=== PATIENT | male | born 1935 | race Caucasian/White ===

== ENCOUNTER 2022-11-30 15:22 | Outpatient (CLI) | payer MEDICARE, SELFPAY ==
[2022-11-30 16:51] LABS: Anion Gap 9.8 (5-19); Blood Urea Nitrogen 22 mg/dL (8-23); Calcium 9.1 mg/dL (8.5-10.5); Carbon Dioxide 36 mmol/L (22-29); Chloride 96 mmol/L (98-107); Glucose 99 mg/dL (65-115); Osmolality Calculated 289 mOsm/kg (285-295); Potassium 3.8 mmol/L (3.5-5.1); Sodium 138 mmol/L (136-145)
== END 2022-11-30 15:23 | disposition home or self-care (01) ==
LOC: LAB 15:30
PROVIDERS: PCP Nurse Practitioner Family; Visit Provider Family Medicine
DX: I50.32 Chronic diastolic (congestive) heart failure (principal)
CPT/HCPCS: 80048

== ENCOUNTER 2023-04-02 12:46 | Outpatient (CLI) | payer MEDICARE, OTHER, SELFPAY ==
--- NOTE | 2023-04-02 13:09 | MR_ITS ---
WS: [id number] MRI ORBITs with and without CONTRAST. COMPARISON: None Multiplanar, multisequence imaging is performed with and without contrast. MultiHance 18 mL IV. 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 Headaches. This study is compromised by motion artifact. Patient was unable to remain still for this examination . 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 There is very minimal peripheral di ffusion abnormality noted in the site of the infarct along with mild cortical laminar necrosis. Minim al associated hemosiderin with in the infarct. There does appear to be a small amount of enhancement within the infarct site suggesting this may be subacute. Due to the volume loss consider a subacute o n chronic infarct. Moderate atrophy is symmetric within the brain. No prior large territory infarct. Mild small vessel i schemic disease. Focus of hemosiderin RIGHT frontal lobe adjacent to the lateral ventricle. Volume lo ss in the cerebellum. Globes appear symmetric. There is increased irregular enhancement along the RIGHT optic nerve. This i s very subtle. The postcontrast images are very limited by motion. MR/MR orbit face neck wo/w* [id number] IMPRESSION: 1. Study is very limited due to motion artifact. Patient was unable to remain still for this examination. 2. 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 There is a small amount of peripheral enhancement. Consider remote infarct with a more subacute expansion. No mass effect. 3. Mild irregular enhancement along the RIGHT optic nerve. Suspicious for opti c neuritis. 4. Atrophy and mild small vessel ischemic disease. 5. No enhancing masses are identified.
[2023-04-02] MEDS: gadobenate dimeglumine 20 mL vial IV (14:34)
== END 2023-04-02 12:47 | disposition home or self-care (01) ==
LOC: RAD 12:53
PROVIDERS: PCP Family Medicine; Visit Provider Physician Assistant Medical
DX: H53.461 Homonymous bilateral field defects, right side (principal)
CPT/HCPCS: 70543; A9577

== ENCOUNTER 2023-04-06 18:25 | Outpatient (CLI) | payer MEDICARE, OTHER, SELFPAY ==
[2023-04-06 18:41] LABS: Urine Appearance Turbid (CLEAR); Urine Color Brown (Yellow); pH Urine 9 (5-7)
[2023-04-06 18:42] LABS: Add Urine Microscopic? YES; Bilirubin Urine Neg (Negative); Blood Urine 3+ (Negative); Glucose Urine UA Norm (Normal); Ketones Urine Negative (Negative); Nitrate Urine Negative (Negative); Protein Urine 2+ (Negative); Urobilinogen Urine Norm (Negative)
[2023-04-06 18:47] LABS: Leukocyte Esterase Urine 2+ (Negative)
[2023-04-06 18:55] LABS: Bacteria Urine 3+ /hpf; Mucus Urine 4+ /hpf; RBC Urine >100 /hpf (0-2); WBC Urine 80-100 /hpf (0-5)
[2023-04-06 18:56] LABS: Add Urine Culture? Yes; Amorphous Sediment Urine 2+ /hpf; Fine Granular Casts Urine RARE /lpf; Hyaline Casts Urine RARE /lpf
== END 2023-04-06 18:26 | disposition home or self-care (01) ==
PROVIDERS: PCP Family Medicine; Visit Provider Family Medicine
DX: Z03.89 Encounter for observation for other suspected diseases and conditions ruled out (principal)
CPT/HCPCS: 81001; 87077; 87086; 87186

== ENCOUNTER → 2023-08-15 14:52 | Outpatient (BNVA) | payer MEDICARE, OTHER, SELFPAY | PROVIDERS: PCP Family Medicine; Visit Provider Podiatrist Foot & Ankle Surgery | DX: B35.1 Tinea unguium (principal); I73.9 Peripheral vascular disease, unspecified; R60.9 Edema, unspecified | CPT/HCPCS: 11721; 99203 ==

== ENCOUNTER → 2023-10-22 10:52 | Outpatient (BNVA) | payer MEDICARE, OTHER, SELFPAY | PROVIDERS: PCP Family Medicine; Visit Provider Podiatrist Foot & Ankle Surgery | DX: B35.1 Tinea unguium (principal); I73.9 Peripheral vascular disease, unspecified; R60.9 Edema, unspecified | CPT/HCPCS: 11721 ==

== ENCOUNTER 2023-11-14 13:09 | Outpatient (RCR) | payer MEDICARE, OTHER, SELFPAY | END 2023-11-25 23:59 | disposition home or self-care (01) | LOC: SST 13:09 | PROVIDERS: PCP Family Medicine; Visit Provider Nurse Practitioner Family | DX: R13.10 Dysphagia, unspecified (principal) | CPT/HCPCS: 92610 ==